=== PATIENT | male | born 1985 | race African-American/Black ===

== ENCOUNTER 2021-01-27 20:36 | Inpatient (IN) | payer OTHER ==
[~2021-01-27] VITALS: Ht 180.3 cm; Wt 106.6 kg
[2021-01-27 20:42] VITALS: BP 134/85
[2021-01-27] MEDS ORDERED: OMEPRAZOLE40 MG PO (20:46)
[2021-01-27 21:26] LABS: ABSOLUTE BASOPHILS 0.1 thou/uL (0.0-0.2); ABSOLUTE EOSINOPHILS 0.2 thou/uL (0.0-0.7); ABSOLUTE LYMPHOCYTES 2.1 thou/uL (0.8-5.3); ABSOLUTE MONOCYTES 0.8 thou/uL (0.0-1.2); ABSOLUTE NEUTROPHILS 6.3 thou/uL (1.6-8.1); BASOPHILS 1.2 %; EOSINOPHILS 1.6 %; HEMATOCRIT 41.6 % (42.0-52.0); HEMOGLOBIN 14.5 gm/dL (14.0-18.0); LYMPHOCYTES 21.7 %; MCH 31.4 pg (26.0-34.0); MCHC 34.9 g/dL (28.0-37.0); MCV 89.9 fL (80.0-100.0); MONOCYTES 8.8 %; MPV 7.2 fl. (7.2-11.1); NUCLEATED RBCS 0 /100WBC; PLATELET COUNT* 454 thou/uL (150-400); POLYS 66.7 %; RBC 4.63 mil/uL (4.50-6.00); RDW-CV 13.7 % (10.5-14.5); WBC 9.5 thou/uL (4.0-11.0)
[2021-01-27 21:45] LABS: CALCIUM 8.7 mg/dL (8.5-10.1); POTASSIUM 3.7 mmol/L (3.5-5.1)
[2021-01-27 21:49] LABS: ALBUMIN 3.2 g/dL (3.4-5.0); MAGNESIUM 1.9 mg/dL (1.8-2.4); TOTAL BILIRUBIN 7.1 mg/dL (<0.1-1.0)
[2021-01-28 01:00] VITALS: BP 127/71
[2021-01-28 01:15] VITALS: BP 102/54
--- NOTE | 2021-01-28 07:08 | NUR ---
PATIENT ARRIVED ON FLOOR FROM ER AT ABOUT 0100. PATIENT ADMISSION HISTORY AND ASSESSMENT WAS COMPLETED CHARTED. IV FLUIDS WERE STARTED AT 100 ML/HR. PATIENT WAS GIVEN PAIN AND NAUSEA MEDS ONCE THIS SHIFT. WILL CONTINUE TO MONITOR.
[2021-01-28 07:10] VITALS: BP 113/58
[2021-01-28 08:22] LABS: ABSOLUTE BASOPHILS 0.1 thou/uL (0.0-0.2); ABSOLUTE EOSINOPHILS 0.1 thou/uL (0.0-0.7); ABSOLUTE LYMPHOCYTES 1.6 thou/uL (0.8-5.3); ABSOLUTE MONOCYTES 0.8 thou/uL (0.0-1.2); ABSOLUTE NEUTROPHILS 8.3 thou/uL (1.6-8.1); BASOPHILS 0.7 %; EOSINOPHILS 0.9 %; HEMATOCRIT 41.4 % (42.0-52.0); HEMOGLOBIN 14.3 gm/dL (14.0-18.0); LYMPHOCYTES 14.4 %; MCH 31.1 pg (26.0-34.0); MCHC 34.5 g/dL (28.0-37.0); MCV 90.1 fL (80.0-100.0); MONOCYTES 7.3 %; MPV 7.3 fl. (7.2-11.1); NUCLEATED RBCS 0 /100WBC; PLATELET COUNT* 477 thou/uL (150-400); POLYS 76.7 %; RDW-CV 13.8 % (10.5-14.5); WBC 10.8 thou/uL (4.0-11.0)
[2021-01-28 08:47] LABS: ALBUMIN 2.8 g/dL (3.4-5.0); CALCIUM 8.4 mg/dL (8.5-10.1); CREATININE 0.9 mg/dL (0.6-1.3); POTASSIUM 3.8 mmol/L (3.5-5.1); TOTAL BILIRUBIN 7.4 mg/dL (<0.1-1.0); TOTAL PROTEIN 6.5 g/dL (6.4-8.2)
--- NOTE | 2021-01-28 12:28 | NUR ---
Pt is A&O. Resides at home. Independent. Pt is private pay, Med [employer]ist to screen for Medicaid. No DME. No hx of HH or SNF. Goal is home at dc. GI following for possible EGD or MRCP. Anticipate dc in a few days. Following.
--- NOTE | 2021-01-28 16:06 | NUR ---
PT REMAINED ALERT AND ORIENTED. PT RESTING IN BED. DOWN FOR PROCEDURE NOW WITH GI. FALL RISK PRECAUTIONS IN PLACE. HOURLY ROUNDING COMPLETED. CALL LIGHT WITHIN REACH.
[2021-01-28 19:45] VITALS: BP 106/65
[2021-01-28 22:37] LABS: AMP/METHAMP Negative (Negative); BARBITURATES Negative (Negative); BENZODIAZEPINES POSITIVE (Negative); COCAINE Negative (Negative); METHADONE Negative (Negative); OPIATES Negative (Negative); PCP Negative (Negative); THC Negative (Negative)
--- NOTE | 2021-01-29 05:54 | NUR ---
PATIENT HAS REMAINED ALERT AND ORIENTED X 4 THROUGHOUT THE SHIFT. TAKING CLEAR LIQUIDS WITHOUT NAUSEA. MEDICATED FOR ABD PAIN X 2 TO GOOD EFFECT. VITAL SIGNS STABLE. MEDS, IVF'S AND ANTIBIOTICS PER ORDER. NOTED REC IN PHYSICIAN REPORT FOR HEART HEALTHY DIET THIS AM. WILL CLARIFY FOR ORDER EARLY AM. CONTINUE TO MONITOR.
[2021-01-29 06:17] LABS: ABSOLUTE BASOPHILS 0.1 thou/uL (0.0-0.2); ABSOLUTE LYMPHOCYTES 1.3 thou/uL (0.8-5.3); ABSOLUTE MONOCYTES 0.5 thou/uL (0.0-1.2); ABSOLUTE NEUTROPHILS 7.8 thou/uL (1.6-8.1); BASOPHILS 0.7 %; HEMATOCRIT 40.9 % (42.0-52.0); LYMPHOCYTES 13.3 %; MCH 31.1 pg (26.0-34.0); MCHC 34.3 g/dL (28.0-37.0); MCV 90.8 fL (80.0-100.0); MONOCYTES 5.5 %; MPV 7.9 fl. (7.2-11.1); NUCLEATED RBCS 0 /100WBC; PLATELET COUNT* 425 thou/uL (150-400); POLYS 80.5 %; RBC 4.51 mil/uL (4.50-6.00); WBC 9.7 thou/uL (4.0-11.0)
[2021-01-29 06:26] LABS: CALCIUM 8.3 mg/dL (8.5-10.1); CREATININE 1.1 mg/dL (0.6-1.3); POTASSIUM 4.1 mmol/L (3.5-5.1)
[2021-01-29 08:00] VITALS: BP 104/58
[2021-01-29 09:36] LABS: ALBUMIN 2.5 g/dL (3.4-5.0); TOTAL BILIRUBIN 6.1 mg/dL (<0.1-1.0); TOTAL PROTEIN 5.9 g/dL (6.4-8.2)
--- NOTE | 2021-01-29 12:24 | NUR ---
PATIENT HAS IV RIGHT LOWER FOREARM. NO REDNESS OR EDEMA AT SITE.
--- NOTE | 2021-01-29 13:51 | NUR ---
Anticipate dc later today or tomorrow, pending diet tolerance and LFTs trending down. GI following. Med Assist completed [place] KEILA gauragn with Pt.
[2021-01-29 14:07] LABS: HEPATITIS B SURFACE AG Negative (Negative)
[2021-01-29 16:13] VITALS: BP 123/62
--- NOTE | 2021-01-29 19:29 | NUR ---
PATIENT HAD A GOOD DAY. WAS MEDICATED FOR PAIN NEEDED. NEW IV SITE. PATIENT IS UP AD KALLI. PATIENT HAD X-RAYS TODAY.
[2021-01-29 20:00] VITALS: BP 113/56
--- NOTE | 2021-01-30 08:21 | NUR ---
Alert and oriented x 4. Vitals stable. He is up independently in the room. He took miralax last evening. His IV is in his rt antecubital, no edema or redness. He had pain meds x 2 this shift. He has slept well.
[2021-01-30 08:35] LABS: ABSOLUTE BASOPHILS 0.1 thou/uL (0.0-0.2); ABSOLUTE EOSINOPHILS 0.2 thou/uL (0.0-0.7); ABSOLUTE LYMPHOCYTES 1.9 thou/uL (0.8-5.3); ABSOLUTE MONOCYTES 0.9 thou/uL (0.0-1.2); ABSOLUTE NEUTROPHILS 4.4 thou/uL (1.6-8.1); BASOPHILS 1.3 %; EOSINOPHILS 2.4 %; HEMATOCRIT 41.5 % (42.0-52.0); HEMOGLOBIN 14.1 gm/dL (14.0-18.0); LYMPHOCYTES 25.8 %; MCH 30.9 pg (26.0-34.0); MCHC 33.8 g/dL (28.0-37.0); MCV 91.3 fL (80.0-100.0); MONOCYTES 11.5 %; NUCLEATED RBCS 0 /100WBC; PLATELET COUNT* 461 thou/uL (150-400); RBC 4.55 mil/uL (4.50-6.00); RDW-CV 13.9 % (10.5-14.5); WBC 7.5 thou/uL (4.0-11.0)
[2021-01-30 08:40] VITALS: BP 112/64
[2021-01-30 08:53] LABS: PREALBUMIN 13.8 mg/dL (18.0-35.7)
[2021-01-30 09:04] LABS: ALBUMIN 2.6 g/dL (3.4-5.0); CALCIUM 8.4 mg/dL (8.5-10.1); CREATININE 1.2 mg/dL (0.6-1.3); TOTAL BILIRUBIN 2.9 mg/dL (<0.1-1.0); TOTAL PROTEIN 6.3 g/dL (6.4-8.2)
[2021-01-30] MEDS ORDERED: CIPRO500 M1 PO (12:38)
[2021-01-30] MEDS ORDERED: ROXICODONE5 MG PO (12:39)
--- NOTE | 2021-01-30 15:40 | NUR ---
Anticipate dc later today or tomorrow pending GI clearance to home with no needs.
[2021-01-30 15:41] VITALS: BP 112/64
[2021-01-30 16:21] VITALS: BP 120/75
--- NOTE | 2021-01-30 16:42 | NUR ---
ASSUMED CARE AT 0730. PT IS ALERT AND OIRENTED. ASSESSMENT DONE AND CHARTED. PAIN CONTROL DURING THIS SHIFT. PT IS UP AD KALLI AND WILL BE DISCHARGING LATER THIS EVENING. PT HAD UNEVENTFUL DAY.
--- NOTE | 2021-02-03 15:07 | PATH ---
[address] [address] PATHOLOGY RPT PROCEDURE Name: LEELA COATS Room: [address] IN [facility]#: [id number] Admission: 01/28/21 Date of : 83 Discharge: 01/30/21 Report #: [id number] Path Case #: [id number] Note [facility] Accession Number: [id number] TESTS RESULT FLAG UNITS REF RANGE LAB Clinician Provided Cytology Information No. of containers..01 Other (Miscellaneous) Source: BILIARYDUCT BRUSHING DIAGNOSIS: 02 BILIARYDUCT BRUSHING NEGATIVE FOR MALIGNANT CELLS. REACTIVE BILIARY EPITHELIAL CELLS AND FEW ACUTE INFLAMMATORY CELLS. Signed out by: 02 Ty Sigala MD, Pathologist NPI- [id number] Performed by: 01 Cherie Paredes, Drawer Fitter ([facility]) Gross description: 01 5ML, CLOUDY, PINK /LCS 01/30/2021 1643 Local FLAG LEGEND: L-Low Normal,H-High Normal,LL-Alert Low,HH-Alert High <-Panic Low,>-Panic High,A-Abnormal,AA-Critical Abnormal Performed at: [address] [place] [address] Augie Laboy MD, [address] [place] [address] [address] [facility], [place] [address] Ty Sigala MD, Specimen Comment: A courtesy copy of this report has been sent to [phone], [phone] Specimen Comment: [id number] Specimen Comment: Report sent to / DR CALVERT Specimen Comment: A duplicate report has been generated due to demographic updates. Performed at: [address], [place], [place] [id number] MD Augie Laboy MD Phone: [phone]
== END 2021-01-30 17:45 | disposition home or self-care (01) | DRG 446 ==
LOC: M.ERS 20:36 → M.TBA-ER 23:40 → M.3W 01-28 01:01
PROVIDERS: Emergency Medicine; Internal Medicine; ADMIT Internal Medicine; ATTEND Internal Medicine
PROC: BF101ZZ Fluoroscopy of Bile Ducts using Low Osmolar Contrast (ICD-10-PCS; principal; 2021-01-28)
PROC: 0FPB8DZ Removal of Intraluminal Device from Hepatobiliary Duct, Via Natural or Artificial Opening Endoscopic (ICD-10-PCS; principal; 2021-01-28)
PROC: 0F798DZ Dilation of Common Bile Duct with Intraluminal Device, Via Natural or Artificial Opening Endoscopic (ICD-10-PCS; principal; 2021-01-28)
PROC: 0F798ZZ Dilation of Common Bile Duct, Via Natural or Artificial Opening Endoscopic (ICD-10-PCS; principal; 2021-01-28)
PROC: 0FC98ZZ Extirpation of Matter from Common Bile Duct, Via Natural or Artificial Opening Endoscopic (ICD-10-PCS; principal; 2021-01-28)
PROC: 0FD98ZX Extraction of Common Bile Duct, Via Natural or Artificial Opening Endoscopic, Diagnostic (ICD-10-PCS; principal; 2021-01-28)
DX: K80.33 Calculus of bile duct with acute cholangitis with obstruction (principal); K75.9 Inflammatory liver disease, unspecified; K21.9 Gastro-esophageal reflux disease without esophagitis; R74.01 Elevation of levels of liver transaminase levels; F17.210 Nicotine dependence, cigarettes, uncomplicated; Z20.822 Contact with and (suspected) exposure to COVID-19; Z87.828 Personal history of other (healed) physical injury and trauma; Z79.899 Other long term (current) drug therapy; Z72.89 Other problems related to lifestyle; Z90.81 Acquired absence of spleen

== ENCOUNTER → 2021-04-01 | Outpatient (CLI) | payer MEDICAID ==
[~2021-04-01] MED LIST: CIPRO500 M1 PO; OMEPRAZOLE40 MG PO; ROXICODONE5 MG PO
[2021-04-01 11:37] LABS: ABSOLUTE BASOPHILS 0.1 thou/uL (0.0-0.2); ABSOLUTE EOSINOPHILS 0.1 thou/uL (0.0-0.7); ABSOLUTE LYMPHOCYTES 2.7 thou/uL (0.8-5.3); ABSOLUTE MONOCYTES 0.7 thou/uL (0.0-1.2); ABSOLUTE NEUTROPHILS 3.2 thou/uL (1.6-8.1); BASOPHILS 1.4 %; EOSINOPHILS 1.8 %; HEMATOCRIT 44.1 % (42.0-52.0); HEMOGLOBIN 14.7 gm/dL (14.0-18.0); LYMPHOCYTES 40.2 %; MCH 30.5 pg (26.0-34.0); MCHC 33.4 g/dL (28.0-37.0); MCV 91.2 fL (80.0-100.0); MONOCYTES 9.9 %; MPV 6.9 fl. (7.2-11.1); NUCLEATED RBCS 0 /100WBC; PLATELET COUNT* 355 thou/uL (150-400); POLYS 46.7 %; RBC 4.83 mil/uL (4.50-6.00); RDW-CV 13.8 % (10.5-14.5); WBC 6.8 thou/uL (4.0-11.0)
[2021-04-01 11:40] LABS: ALBUMIN 3.9 g/dL (3.4-5.0); CREATININE 1.2 mg/dL (0.6-1.3); TOTAL BILIRUBIN 0.6 mg/dL (<0.1-1.0); TOTAL PROTEIN 7.7 g/dL (6.4-8.2)
== END ==
LOC: M.LAB 11:13
PROVIDERS: ATTEND Internal Medicine Gastroenterology
DX: K83.1 Obstruction of bile duct (principal); K83.09 Other cholangitis; Z98.890 Other specified postprocedural states

== ENCOUNTER → 2021-06-02 | Outpatient (CLI) | payer OTHER, MEDICAID ==
[2021-06-02 15:34] LABS: ABSOLUTE BASOPHILS 0.1 thou/uL (0.0-0.2); ABSOLUTE EOSINOPHILS 0.1 thou/uL (0.0-0.7); ABSOLUTE LYMPHOCYTES 3.4 thou/uL (0.8-5.3); ABSOLUTE MONOCYTES 0.8 thou/uL (0.0-1.2); ABSOLUTE NEUTROPHILS 3.6 thou/uL (1.6-8.1); EOSINOPHILS 1.7 %; HEMATOCRIT 44.7 % (42.0-52.0); LYMPHOCYTES 43.1 %; MCH 30.3 pg (26.0-34.0); MCHC 33.5 g/dL (28.0-37.0); MCV 90.5 fL (80.0-100.0); MONOCYTES 9.5 %; MPV 6.8 fl. (7.2-11.1); NUCLEATED RBCS 0 /100WBC; PLATELET COUNT* 368 thou/uL (150-400); POLYS 44.7 %; RBC 4.94 mil/uL (4.50-6.00); RDW-CV 14.1 % (10.5-14.5)
[2021-06-02 16:08] LABS: CALCIUM 8.9 mg/dL (8.5-10.1); CREATININE 1.1 mg/dL (0.6-1.3); POTASSIUM 4.5 mmol/L (3.5-5.1)
[2021-06-02 16:12] LABS: ALBUMIN 4.1 g/dL (3.4-5.0); TOTAL BILIRUBIN 0.3 mg/dL (<0.1-1.0); TOTAL PROTEIN 7.2 g/dL (6.4-8.2)
== END ==
LOC: M.LAB 15:11
PROVIDERS: ATTEND Internal Medicine Gastroenterology
DX: K83.1 Obstruction of bile duct (principal)

== ENCOUNTER 2021-06-19 14:26 | Inpatient (IN) | payer OTHER, MEDICAID ==
[~2021-06-19] VITALS: Ht 180.3 cm; Wt 113.1 kg
[2021-06-19 14:34] VITALS: BP 158/97
[2021-06-19 14:35] VITALS: BP 139/91
[2021-06-19 14:58] LABS: ABSOLUTE BASOPHILS 0.1 thou/uL (0.0-0.2); ABSOLUTE LYMPHOCYTES 2.8 thou/uL (0.8-5.3); ABSOLUTE MONOCYTES 0.9 thou/uL (0.0-1.2); ABSOLUTE NEUTROPHILS 8.1 thou/uL (1.6-8.1); BASOPHILS 0.7 %; EOSINOPHILS 0.2 %; HEMATOCRIT 44.8 % (42.0-52.0); LYMPHOCYTES 23.5 %; MCH 29.9 pg (26.0-34.0); MCHC 33.5 g/dL (28.0-37.0); MCV 89.1 fL (80.0-100.0); MONOCYTES 7.4 %; MPV 6.8 fl. (7.2-11.1); NUCLEATED RBCS 0 /100WBC; PLATELET COUNT* 377 thou/uL (150-400); POLYS 68.2 %; RBC 5.03 mil/uL (4.50-6.00); RDW-CV 14.2 % (10.5-14.5); WBC 11.8 thou/uL (4.0-11.0)
[2021-06-19 15:05] LABS: CALCIUM 8.6 mg/dL (8.5-10.1); CREATININE 1.1 mg/dL (0.6-1.3); POTASSIUM 3.9 mmol/L (3.5-5.1)
[2021-06-19 15:09] LABS: ALBUMIN 3.9 g/dL (3.4-5.0); TOTAL BILIRUBIN 0.7 mg/dL (<0.1-1.0); TOTAL PROTEIN 7.4 g/dL (6.4-8.2)
--- NOTE | 2021-06-19 15:38 | EKG ---
[place] [address] ELECTROCARDIOGRAM REPORT Name: LEELA COATS Room: [facility]#: [id number] Admission: 06/19/21 Attend Phys: Discharge: Date of : 83 Date of Service: 06/19/21 1450 Report #: [id number] THIS REPORT FOR: //name// [facility] ED Test Date: 2021-06-19 Test Time: 14:50:35 Pat Name: LEELA COATS Department: Room: Gender: Custom Shoemaker: [facility] : 1985 Requested By: eVra Spencer Order Number: [id number] MD: Matt Godinez Measurements Intervals [place] Rate: 53 P: -6 WV: 183 QRS: 40 QRSD: 82 T: 19 QT: 393 QTc: 369 Interpretive Statements Sinus rhythm Possible anteroseptal infarct, old No previous ECG available for comparison Electronically Signed On 06-19-2021 15:38:04 [employer] by Matt Godinez [email or web address] <ELECTRONICALLY SIGNED> By: Matt Godinez MD, [facility] 06/19/21 1538 1450 1450 Matt Godinez MD, FAC /EPI
[2021-06-19 22:19] VITALS: BP 141/67
[2021-06-19 22:45] VITALS: BP 141/67
[2021-06-19 23:13] VITALS: BP 136/89
[2021-06-20 04:26] LABS: CALCIUM 8.4 mg/dL (8.5-10.1); CREATININE 1.2 mg/dL (0.6-1.3); POTASSIUM 3.8 mmol/L (3.5-5.1)
[2021-06-20 04:27] LABS: ABSOLUTE BASOPHILS 0.1 thou/uL (0.0-0.2); ABSOLUTE EOSINOPHILS 0.1 thou/uL (0.0-0.7); ABSOLUTE LYMPHOCYTES 2.4 thou/uL (0.8-5.3); ABSOLUTE MONOCYTES 1.4 thou/uL (0.0-1.2); ABSOLUTE NEUTROPHILS 8.1 thou/uL (1.6-8.1); BASOPHILS 0.5 %; EOSINOPHILS 1.1 %; HEMATOCRIT 43.5 % (42.0-52.0); HEMOGLOBIN 14.8 gm/dL (14.0-18.0); LYMPHOCYTES 19.7 %; MCH 30.2 pg (26.0-34.0); MCHC 34.1 g/dL (28.0-37.0); MCV 88.7 fL (80.0-100.0); MONOCYTES 11.7 %; MPV 7.3 fl. (7.2-11.1); NUCLEATED RBCS 0 /100WBC; PLATELET COUNT* 381 thou/uL (150-400); RDW-CV 13.6 % (10.5-14.5); WBC 12.1 thou/uL (4.0-11.0)
[2021-06-20 04:31] LABS: ALBUMIN 3.4 g/dL (3.4-5.0); TOTAL PROTEIN 6.9 g/dL (6.4-8.2)
[2021-06-20 08:00] VITALS: BP 112/57
[2021-06-20 11:40] VITALS: BP 118/57
[2021-06-20 12:37] VITALS: BP 107/61
[2021-06-20 18:00] VITALS: BP 111/68
[2021-06-20 20:13] VITALS: BP 120/66
[2021-06-21 04:27] LABS: ABSOLUTE BASOPHILS 0.1 thou/uL (0.0-0.2); ABSOLUTE EOSINOPHILS 0.1 thou/uL (0.0-0.7); ABSOLUTE LYMPHOCYTES 2.4 thou/uL (0.8-5.3); ABSOLUTE MONOCYTES 1.5 thou/uL (0.0-1.2); ABSOLUTE NEUTROPHILS 7.2 thou/uL (1.6-8.1); BASOPHILS 0.6 %; EOSINOPHILS 1.1 %; HEMATOCRIT 43.6 % (42.0-52.0); HEMOGLOBIN 14.5 gm/dL (14.0-18.0); LYMPHOCYTES 20.9 %; MCH 29.8 pg (26.0-34.0); MCHC 33.3 g/dL (28.0-37.0); MCV 89.4 fL (80.0-100.0); MONOCYTES 13.6 %; MPV 7.3 fl. (7.2-11.1); NUCLEATED RBCS 0 /100WBC; PLATELET COUNT* 376 thou/uL (150-400); POLYS 63.8 %; RBC 4.87 mil/uL (4.50-6.00); RDW-CV 13.7 % (10.5-14.5); WBC 11.3 thou/uL (4.0-11.0)
[2021-06-21 04:39] LABS: ALBUMIN 3.4 g/dL (3.4-5.0); CALCIUM 8.5 mg/dL (8.5-10.1); CREATININE 1.3 mg/dL (0.6-1.3); POTASSIUM 3.8 mmol/L (3.5-5.1); TOTAL BILIRUBIN 0.9 mg/dL (<0.1-1.0); TOTAL PROTEIN 6.9 g/dL (6.4-8.2)
[2021-06-21 08:05] VITALS: BP 104/64
[2021-06-21 11:12] VITALS: BP 104/64
[2021-06-21 12:02] VITALS: BP 113/67
[2021-06-21 12:09] VITALS: BP 104/64
== END 2021-06-21 12:10 | disposition home or self-care (01) | DRG 445 ==
LOC: M.ERS 14:26 → M.TBA-ER 18:21 → M.ORTHSURG 18:21 → M.2W 06-20 19:31
PROVIDERS: Internal Medicine; Internal Medicine Gastroenterology; Student in an Organized Health Care Education/Training Program; ADMIT Internal Medicine; ATTEND Internal Medicine
PROC: 0DJ08ZZ Inspection of Upper Intestinal Tract, Via Natural or Artificial Opening Endoscopic (ICD-10-PCS; principal; 2021-06-20)
PROC: 0FPB8DZ Removal of Intraluminal Device from Hepatobiliary Duct, Via Natural or Artificial Opening Endoscopic (ICD-10-PCS; principal; 2021-06-20)
DX: K81.9 Cholecystitis, unspecified (principal); E87.1 Hypo-osmolality and hyponatremia; K21.9 Gastro-esophageal reflux disease without esophagitis; D57.3 Sickle-cell trait; D72.829 Elevated white blood cell count, unspecified; F17.210 Nicotine dependence, cigarettes, uncomplicated; E86.0 Dehydration; Z20.822 Contact with and (suspected) exposure to COVID-19